=== PATIENT | male | born 1995 | race Caucasian/White ===

== ENCOUNTER 2022-06-16 09:51 | Emergency (ER) | payer BC ==
[~2022-06-16] VITALS: Ht 182.9 cm; Wt 104.3 kg
[~2022-06-16 09:51] MED LIST: ACET-2634 PO
[2022-06-16 10:17] VITALS: BP_SYST 129
[2022-06-16] MEDS ORDERED: KETOROLAC TROMETHAMINE 30 MG VIAL ONE (13:23)
[2022-06-16] MEDS ORDERED: BACITRACIN 1 GM OINT TP ONE ×2 (13:24→13:30)
[2022-06-16] MEDS ORDERED: KETOROLAC TROMETHAMINE 30 MG VIAL IM ONE (13:30)
[2022-06-16] MEDS ORDERED: BACI15OI13 TP (13:31)
[2022-06-16 13:57] VITALS: BP_SYST 129
== END 2022-06-16 13:58 | disposition home or self-care (01) ==
LOC: SED 09:51
DX: S80.02XA Contusion of left knee, initial encounter (principal); E11.9 Type 2 diabetes mellitus without complications; Z88.5 Allergy status to narcotic agent; Z79.899 Other long term (current) drug therapy; W18.39XA Other fall on same level, initial encounter; Y93.89 Activity, other specified; Y92.89 Other specified places as the place of occurrence of the external cause; Y99.8 Other external cause status
CPT/HCPCS: 99283; 73560; 96372; J1885